=== PATIENT | female | born 1955 | race Caucasian/White ===

== ENCOUNTER 2016-04-13 12:50 | Emergency (ER) | payer OTHER ==
[~2016-04-13] VITALS: Ht 160 cm; Wt 125.0 kg
[~2016-04-13 12:50] MED LIST: ACET500T36 PO; CALC600T13 PO; CELE40TA PO; CHOL100025 CHEW; PROBCAP15; VITATAB11; XARE20TA PO; ZOFR4TAB PO
[2016-04-13 12:51] VITALS: BP 230/102; PULSE 82; RESP 16; TEMP 99.3; O2SAT 97
--- NOTE | 2016-04-13 13:58 | PD ---
HPI Chief Complaint: Pain: Acute or Chronic Time Seen by Provider: 13:58 Travel History International Travel<30 days: No Contact w/Intl Traveler<30days: No Traveled to known affect area: No History of Present Illness HPI 60-year-old female presents to the emergency department sent her by her primary care physician for blood clots in the left leg. Patient had a venous Doppler ultrasound the left leg done today at [facility]. She states that she went to her primary care's physician's office who instructed her to come to the emergency department. Her primary care physician is Dr. Gamble. The patient is currently on Cymbalta per history of DVT and PE. She does report some shortness of breath and midsternal chest pain since Tuesday. She states it is worse with deep breathing and movement. Patient is concerned she may also have a PE. She also reports some low-grade fevers for the past few days. She also reports some cough and congestion. 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 She sees Dr. Gallegos and a PET scan was just recently completed. Patient is not currently on chemotherapy or radiation. She does report being off of her Xarelto for approximate 1 week in February. She is unsure exactly when this was. 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) Cardiac Catheterization: Yes Cardiovascular Problems: Yes (AFIB, HTN ) Chemotherapy: Yes Diabetes: No Diminished Hearing: No Deep Vein Thrombosis: Yes Endocrine: No Gastrointestinal Disorders: Yes GERD: Yes Genitourinary: Yes (GERD, IBS) Hypertension: Yes Immune Disorder: No Implanted Vascular Access Dvce: Yes Musculoskeletal: Yes Neurologic: No Psychiatric: Yes (ANXIETY, DEPRESSION) Reproductive: No Respiratory: Yes (PE, SLEEP APNEA- DOESNT USE HER CPAP DUE TO CLAUSTROPHOBIA) Immunizations Current: Yes Sleep Apnea: Yes Thyroid Disease: No ?: Not Past Surgical History Abdominal Surgery: Yes (COLON RESECTION, PERITONEAL CANCER DEBULKING) Gynecologic Surgery: Yes (HYSTERECTOMY) Hysterectomy: Yes Joint Replacement: Yes (METAL PLATES IN RIGHT WRIST) Other Surgery: Yes Social History Alcohol Use: No Tobacco Use: No (never) Substance Use: No Allergies-Medications (Allergen,Severity, Reaction): Coded Allergies: No Known Allergies (Unverified , 04/13/16) Reported Meds & Prescriptions Reported Meds & Active Scripts Active Reported Calcium 600 Mg Tab 600 Mg PO DAILY Vitamin D3 (Cholecalciferol) 1,000 Unit Chew 1,000 Units CHEW DAILY Celexa (Citalopram Hydrobromide) 40 Mg Tab 40 Mg PO DAILY Zofran (Ondansetron HCl) 4 Mg Tab 4 Mg PO Q8HR PRN Trubiotics (Probiotic Product) 1 Cap Cap DAILY Vitamin B Complex (B-Complex Vitamins) 1 Tab DAILY Xarelto (Rivaroxaban) 20 Mg Tab 20 Mg PO DAILY Review of Systems Except as stated in HPI: all other systems reviewed are Neg Physical Exam Narrative GENERAL: Well-developed well-nourished female patient, ambulatory. Afebrile. SKIN: Warm and dry. HEAD: Normocephalic. Atraumatic. EYES: No scleral icterus. No injection or drainage. NECK: Supple, trachea midline. No JVD or lymphadenopathy. CARDIOVASCULAR: Regular rate and rhythm without murmurs, gallops, or rubs. RESPIRATORY: Breath sounds equal bilaterally. No accessory muscle use. Lungs sounds are clear to auscultation. GASTROINTESTINAL: Abdomen soft, non-tender, nondistended. MUSCULOSKELETAL: No cyanosis, or edema. Patient has tenderness over left thigh and calf. No erythema or edema noted. BACK: Nontender without obvious deformity. No CVA tenderness. Data Data Last Documented VS Vital Signs Date Time Temp Pulse Resp B/P Pulse Ox O2 Delivery O2 Flow Rate FiO2 04/13/16 15:00 72 16 127/64 96 Room Air 04/13/16 12:51 99.3 Orders Electrocardiogram (04/13/16 13:54) Basic Metabolic Panel (Bmp) (04/13/16 13:54) Ckmb (Isoenzyme) Profile (04/13/16 13:54) Complete Blood Count With Diff (04/13/16 13:54) Magnesium (Mg) (04/13/16 13:54) Prothrombin Time / Inr (Pt) (04/13/16 13:54) Act Partial Throm Time (Ptt) (04/13/16 13:54) Troponin I (04/13/16 13:54) Ecg Monitoring (04/13/16 13:54) Bilateral Bp Monitoring (04/13/16 13:54) Iv Access Insert/Monitor (04/13/16 13:54) Oximetry (04/13/16 13:54) Oxygen Administration (04/13/16 13:54) Sodium Chloride 0.9% Flush (Ns Flush) (04/13/16 14:00) Ct Pulmonary Angiogram (04/13/16 13:54) Ondansetron Inj (Zofran Inj) (04/13/16 14:30) Iohexol 350 Inj (Omnipaque 350 Inj) (04/13/16 15:26) Morphine Inj (Morphine Inj) (04/13/16 15:45) Enoxaparin Inj (Lovenox Inj) (04/13/16 16:15) Labs Laboratory Tests Test 04/13/16 14:10 White Blood Count 12.1 TH/MM3 Red Blood Count 4.30 MIL/MM3 Hemoglobin 12.0 GM/DL Hematocrit 36.6 % Mean Corpuscular Volume 85.1 FL Mean Corpuscular Hemoglobin 28.0 PG Mean Corpuscular Hemoglobin 32.9 % Concent Red Cell Distribution Width 14.5 % Platelet Count 207 TH/MM3 Mean Platelet Volume 8.5 FL Neutrophils (%) (Auto) 70.4 % Lymphocytes (%) (Auto) 17.4 % Monocytes (%) (Auto) 8.2 % Eosinophils (%) (Auto) 3.4 % Basophils (%) (Auto) 0.6 % Neutrophils # (Auto) 8.5 TH/MM3 Lymphocytes # (Auto) 2.1 TH/MM3 Monocytes # (Auto) 1.0 TH/MM3 Eosinophils # (Auto) 0.4 TH/MM3 Basophils # (Auto) 0.1 TH/MM3 CBC Comment DIFF FINAL Differential Comment Prothrombin Time 11.3 SEC Prothromb Time International 1.0 RATIO Ratio Activated Partial 28.0 SEC Thromboplast Time Sodium Level 139 MEQ/L Potassium Level 3.7 MEQ/L Chloride Level 103 MEQ/L Carbon Dioxide Level 26.8 MEQ/L Anion Gap 9 MEQ/L Blood Urea Nitrogen 12 MG/DL Creatinine 0.98 MG/DL Estimat Glomerular Filtration 58 ML/MIN Rate Random Glucose 121 MG/DL Calcium Level 9.1 MG/DL Magnesium Level 1.9 MG/DL Total Creatine Kinase 35 U/L Troponin I LESS THAN 0.02 NG/ML MDM Medical Decision Making Medical Screen Exam Complete: Yes Emergency Medical Condition: Yes Medical Record Reviewed: Yes Interpretation(s) CT PA - CONCLUSION: 1. Negative examination. Differential Diagnosis DVT versus PE versus pneumonia Narrative Course 60-year-old female presents to the emergency department sent by her primary care physician for DVT of the left lower extremity. I was over to obtain the report from [facility] which shows extensive venous thrombosis seen throughout the left leg involving the femoral vein, popliteal, peroneal and posterior tibial vein and common femoral vein. This is occlusive. The greater saphenous vein is patent. Patient also complains of some shortness of breath and pleuritic midsternal chest pain. EKG, CBC, BMP, CK, troponin, magnesium, PTT, PT/INR ordered and pending. CT pulmonary angiogram is ordered and pending. EKG shows SR, HR 75, no acute ST changes. CBC shows slight leukocytosis at 12.1. BMP shows no acute abnormalities. CK is 35. Troponin is less than 0.02. Magnesium is 1.9. Coags are unremarkable. CT pulmonary angiogram is negative. 1558 - with Dr. Zaragoza, patient's oncologist, who is unsure when it comes to the DVT. He would like me to consult whoever is on-call for hematology. He does state that the patient has had a biopsy for possible liver metastases which did not confirm cancer. However, did show cirrhosis. She has a repeat PET scan ordered. She also has an outpatient GI referral for cirrhosis. 1556 - sales and service technician electronics teacher is paged. Dr. Gutierrez returned my call. He would like the patient to be changed to Lovenox 1 mg/kg twice a day. The patient states she has used Lovenox injections before and feels comfortable with this. Patient will be instructed how to use the Lovenox injection before she is discharged. She is to return for any acute worsening of symptoms. Patient is agreeable. Diagnosis Primary Impression: DVT, lower extremity, recurrent Qualified Code: I82.402 - DVT, lower extremity, recurrent, left Referrals: Derrek Gutierrez MD,Jennifer Andrew MD Patient Instructions: Deep Venous Thrombosis (ED), General Instructions Additional Instructions: Stop Xarelto and use Lovenox injections as directed. Follow-up with Dr. Gutierrez, sales and service technician, before the prescription has run out. Return to the emergency department for any acute, worsening of symptoms. Med/Other Pt SpecificInfo: Prescription(s) given Scripts Enoxaparin Inj (Lovenox Inj)120 Mg/0.8 Ml Eub381 Mg SQ BID 21 Days Ref 0 Prov:Paz Elise 04/13/16 Disposition: 01 DISCHARGE HOME Condition: Stable Paz Elise Apr 13, 2016 13:58
[2016-04-13 14:00] VITALS: BP 138/67; PULSE 78; RESP 18; O2SAT 96
[2016-04-13] MEDS ORDERED: SODIUM CHLORIDE 0.9% FLUSH 5 ML FLUSH IVF PRN (14:00)
[2016-04-13 14:22] LABS: AUTOMATED NEUTROPHIL # 8.5 TH/MM3 (1.8-7.7); BASOPHIL # 0.1 TH/MM3 (0-0.2); BASOPHIL % 0.6 % (0.0-2.0); EOSINOPHIL # 0.4 TH/MM3 (0-0.4); EOSINOPHIL % 3.4 % (0.0-4.0); HEMATOCRIT 36.6 % (35.0-46.0); HEMO FLAGS DIFF FINAL; LYMPH % 17.4 % (9.0-44.0); LYMPHOCYTE # 2.1 TH/MM3 (1.0-4.8); MEAN CELL VOLUME 85.1 FL (80.0-100.0); MEAN CORPUSCULAR HGB CONC 32.9 % (32.0-36.0); MONO % 8.2 % (0.0-8.0); NEUT % 70.4 % (16.0-70.0); PLATELET COUNT 207 TH/MM3 (150-450); RED CELL DISTRIBUTION WIDTH 14.5 % (11.6-17.2); WHITE BLOOD COUNT 12.1 TH/MM3 (4.0-11.0)
[2016-04-13] MEDS ORDERED: ONDANSETRON HCL 4 MG/2 ML VIAL IV PUSH ONE (14:30)
[2016-04-13 14:32] LABS: PROTHROMBIN TIME - PATIENT 11.3 SEC (9.8-11.6)
[2016-04-13 14:38] LABS: ANION GAP 9 MEQ/L (5-15); BICARBONATE 26.8 MEQ/L (21.0-32.0); BLOOD UREA NITROGEN 12 MG/DL (7-18); CHLORIDE 103 MEQ/L (98-107); GLOMERULAR FILTRATION RATE 58 ML/MIN (>89); MAGNESIUM 1.9 MG/DL (1.5-2.5); POTASSIUM 3.7 MEQ/L (3.5-5.1); SODIUM (NA) 139 MEQ/L (136-145)
[2016-04-13 14:53] LABS: CREATINE KINASE 35 U/L (26-192)
[2016-04-13 15:00] VITALS: BP 127/64; PULSE 72; RESP 16; O2SAT 96
[2016-04-13] MEDS ORDERED: IOHEXOL 350 MG/ML 10 ML VIAL (for RAD DIAG) IV ONE (15:26)
--- NOTE | 2016-04-13 15:41 | RADRPT ---
EXAM DATE/TIME: 04/13/2016 15:26 [facility] COMPARISON: CT NEEDLE BIOPSY LIVER, March 16, 2016, 10:11. INDICATIONS : Left leg pain with DVT; evaluate for pulmonary embolism. IV CONTRAST: 50 cc Omnipaque 350 (iohexol) IV RADIATION DOSE: 25.16 CTDIvol (mGy) MEDICAL HISTORY : Cardiovascular disease. Hypertension. Deep venous thrombosis.Peritoneal and colon cancer. SURGICAL HISTORY : Colon resection. ENCOUNTER: Initial ACUITY: 1 day PAIN SCALE: 0/10 LOCATION: chest TECHNIQUE: Volumetric scanning of the chest was performed using a pulmonary embolism protocol MIP images were re constructed. Using automated exposure control and adjustment of the mA and/or kV according to patien t size, radiation dose was kept as low as reasonably achievable to obtain optimal diagnostic quality images. FINDINGS: PULMONARY ARTERIES: No filling defects are seen in the pulmonary arteries through the segmental level. LUNGS: There is no consolidation or pneumothorax . No concerning pulmonary nodule is visualized. PLEURAE: There is no pleural thickening or pleural effusion. MEDIASTINUM: There is good visualization of the great vessels of the middle mediastinum. No evidence of mediastin al or hilar adenopathy/mass. MUSCULOSKELETAL: Within normal limits for patient age. MISCELLANEOUS: The visualized upper abdominal organs demonstrate no acute abnormality. CONCLUSION: 1. Negative examination. Rasheed Esteves MD on April 13, 2016 at 15:36 Board Certified Radiologist. This report was verified electronically.
[2016-04-13] MEDS ORDERED: MORPHINE SULFATE 4 MG/ML INJ IV PUSH ONE (15:45)
[2016-04-13 16:00] VITALS: BP 130/61; PULSE 67; RESP 16; O2SAT 96
[2016-04-13] MEDS ORDERED: ENOXAPARIN SODIUM 150 MG/ML SYRINGE SQ ONE (16:15)
[2016-04-13] MEDS ORDERED: ENOX120P SQ ×2 (16:28→16:31)
--- NOTE | 2016-04-14 11:45 | EKG ---
Date Performed: 04/13/2016 Time Performed: 14:26:53 PTAGE: 60 years EKG: Sinus rhythm WITH SHORT MA INTERVAL VOLTAGE CRITERIA FOR LVH ABNORMAL ECG WARNING: DATA QUALITY MAY AFFECT INTERP RETATION PREVIOUS TRACING : 11/25/2015 17.39 DOCTOR: Luis Felipe Greenfield Interpretating Date/Time 04/14/2016 11:44:22
== END 2016-04-13 17:24 | disposition home or self-care (01) ==
LOC: NEPC 12:50
DX: I82.492 Acute embolism and thrombosis of other specified deep vein of left lower extremity (principal); Z86.718 Personal history of other venous thrombosis and embolism; Z86.711 Personal history of pulmonary embolism; I48.91 Unspecified atrial fibrillation; I10 Essential (primary) hypertension; Z79.01 Long term (current) use of anticoagulants
CPT/HCPCS: 71275; 80048; 82550; 83735; 84484; 85025; 85610; 85730; 93005; 96372; 96374; 96375; 99284; J1650; J2270; J2405; Q9967